=== PATIENT | female | born 1990 | race African-American/Black ===

== ENCOUNTER 2019-04-02 11:53 | Observation (INO) | payer OTHER, SELFPAY ==
[2019-04-02] MEDS ORDERED: Calcium Carbonate 500 MG ChewTAB PO PRN (14:13)
[2019-04-02] MEDS ORDERED: Ondansetron ODT 4 MG TAB PO PRN (14:13)
[2019-04-02] MEDS ORDERED: Ondansetron PF 4 MG/2 ML Vial IVP PRN (14:13)
[2019-04-02] MEDS ORDERED: Acetaminophen 650 MG Suppository PR PRN (14:13)
[2019-04-02] MEDS ORDERED: Morphine 2 MG/ML SYRINGE SLOW IVP PRN (14:16)
[2019-04-02] MEDS ORDERED: Pantoprazole 40 MG VIAL IVP SCH (14:30)
--- NOTE | 2019-04-02 14:34 | HP ---
PRIMARY CARE: [facility]. CHIEF COMPLAINT: Abdominal discomfort. HISTORY OF PRESENT ILLNESS: The patient is a 28-year-old female, with recent small-bowel obstruction requiring hospitalization at [facility], presented to the emergency room with above complaints. The patient was discharged four days ago from [facility]. Around 1 a.m., the patient had sudden onset of abdominal discomfort which was periumbilical cramping, moderate to severe in intensity associated with nausea and vomiting. The pain was radiating to her back on the right side. She had a total of six episodes of vomiting. The vomitus contained food, which she had eaten. Later on, it became bilious. The last bowel movement was approximately 3 hours ago. This was just prior to the admission to this facility from [place]. She felt generally weak and fatigued. No dysuria, hematuria, urgency, chest pain, palpitations, or lightheadedness reported. Approximately five days ago, she was diagnosed with small bowel obstruction and was evaluated by General surgeon, Dr. Argelia Quintero. She was advised to follow up with the above surgeon as outpatient for possible surgical intervention. She is unable to provide further details. PAST MEDICAL HISTORY: 1. Umbilical hernia. 2. Recent hospitalization as discussed above. PAST SURGICAL HISTORY: EGD in 2009. CURRENT HOME MEDICATION: The patient is on Tylenol No. 3 as needed. ALLERGIES: NO KNOWN DRUG ALLERGIES. SOCIAL HISTORY: The patient currently lives at home with her family. She has six children. No smoking, alcohol, or drug use. FAMILY HISTORY: Positive for diabetes. REVIEW OF SYSTEMS: All other review of systems was reviewed and were found negative. PHYSICAL EXAMINATION: VITAL SIGNS: Temperature 98, pulse rate of 94, blood pressure 121/89 with O2 saturation of 100% on room air. GENERAL: A 28-year-old female, in no significant distress. Abdominal pain improved with morphine and Reglan. HEENT: Head, atraumatic and normocephalic. Sclerae are anicteric. Moist mucous membranes. No oral lesion. NECK: Supple. No JVD. No carotid bruit. LUNGS: Lungs were clear to auscultation bilaterally. No wheezing, rales, or rhonchi. HEART: S1 and S2 present. Regular rate and rhythm. No rubs or gallops. ABDOMEN: Soft, nontender. Bowel sounds present. Umbilical hernia noted. No rebound or guarding. No costovertebral angle tenderness. EXTREMITIES: No edema or calf tenderness. NEUROLOGIC: Grossly nonfocal. Moves all 4 extremities. PSYCHIATRY: Alert, awake, and oriented x3. SKIN: Warm and dry. LYMPH NODES: No palpable lymph nodes in the neck. PERIPHERAL VASCULAR: Radial pulses palpable bilaterally. MUSCULOSKELETAL: No joint swelling and tenderness. DIAGNOSTIC IMPRESSION: 1. Telemetry rhythm by my review showed sinus rhythm. 2. CT scan of the abdomen and pelvis from [facility] showed slight improvement of the small bowel distention. There is some questionable internal hernia suspected. There was also fluid within the fat containing periumbilical hernia. 3. test was negative. 4. PT/INR; PTT was 12.2, INR 1.1. 5. Chemistry showed sodium 136, potassium 2.9, chloride 103, bicarb 24, BUN 6, creatinine 0.8, glucose of 113. 6. CBC showed WBC 8.2 with hemoglobin 13.1, hematocrit 40.4, platelet count of 251. IMPRESSION: 1. Abdominal pain of unclear etiology. CT scan showed suspected internal hernia. 2. Recent hospitalization at [facility] for small-bowel obstruction. 3. Nausea and vomiting with abdominal pain secondary to #1. 4. Hypokalemia. 5. Umbilical hernia. PLAN: The patient will be monitored on the surgical floor as 23-hour observation. General Surgery will be consulted. We will replace electrolytes. We will keep her n.p.o. except for ice chips. She received 1 dose of Zosyn in the emergency room. We will hold antibiotics for now. Pain control with IV morphine. Consult walking program. Recheck labs including lactic acid. Check urinalysis. The patient understands the above plan of care. Job ID: [id number]
[2019-04-02 15:19] LABS: Lactic Acid 0.7 mmol/L (0.5-2.2)
[2019-04-02 15:23] LABS: Magnesium 1.7 mg/dL (1.6-2.6)
[2019-04-02] MEDS: NS 0.9% w/ 40 MEQ KCL 1,000 ML IV SCH (17:04)
[2019-04-02 18:00] VITALS: BMI 41.5
[2019-04-02 19:11] LABS: Bilirubin Negative (Negative); Blood, Urine 1+ (Negative); Clarity Clear (Clear); Glucose, Urine (Dipstick) Normal (Negative); Leukocyte Negative Leu/uL (Negative); Nitrite Negative (Negative); Protein, Urine (Dipstick) 10 mg/dL (Neg-Trace); RBC/HPF 0-3 HPF (0-3); Urobilinogen Normal mg/dL (Less than 2)
[2019-04-02 19:12] LABS: Bacteria/HPF 1+ HPF (None Seen)
--- NOTE | 2019-04-02 20:16 | CON ---
DATE OF CONSULTATION: 04/02/2019 REQUESTING PHYSICIAN: Dr. Melgoza. CHIEF COMPLAINT: Abdominal discomfort. HISTORY OF PRESENT ILLNESS: This is a 28-year-old female who was admitted this past Friday at [facility] for an umbilical hernia with small bowel obstruction. The patient was discharged the next day and was told that they did not have time to do a surgical repair at that time. The patient was told to follow up with the surgeon in 2 weeks to schedule the surgery. The patient reports increased abdominal pain today with multiple episodes of vomiting. The patient was seen again at [facility] and was transferred as they did not have a surgeon on-call. The patient reports she had a sudden onset of abdominal discomfort. States that it was a cramping-like sensation around her umbilicus. The patient also reported multiple episodes of nausea and vomiting. States that first she vomited up food and then it was yellow afterwards. The patient did have a bowel movement earlier today. The patient states it was looser than normal. The patient also feels like she currently needs to have another bowel movement. The patient has not had any additional vomiting since being transferred. The patient states that the medication Reglan that they gave her at [facility] helped her pain and her vomiting. The patient also reported feeling generally weak and fatigued. The patient denies any urinary symptoms, denies any urgency, denies hematuria, denies any frequency. The patient denies any chest pain, shortness of breath, palpitations, or feeling lightheaded. The patient's last was 4 months ago and this is when she noticed her umbilical hernia. The patient was also given morphine with pain relief. PAST MEDICAL HISTORY: The patient denies. The patient is a 6, para 6, all vaginal deliveries. SURGICAL HISTORY: Reports endoscopy for reflux in 2009. ALLERGIES: NO KNOWN DRUG ALLERGIES. HOME MEDICATIONS: Tylenol No. 3 p.r.n. SOCIAL HISTORY: The patient is single, denies any alcohol use, denies any drug use or marijuana use, denies tobacco use. FAMILY HISTORY: Positive for diabetes. REVIEW OF SYSTEMS: A 10-point review of systems is negative unless otherwise indicated in the above HPI. PHYSICAL EXAMINATION: VITAL SIGNS: Blood pressure 120/73, SpO2 of 100% on room air, respirations 18, pulse 71, temperature 98.6. GENERAL: Well-appearing female, lying on her right side, in no acute distress. HEENT: Head is atraumatic and normocephalic. Mucous membranes are moist. Oropharynx is normal. NECK: Normal range of motion. No JVD. RESPIRATORY: Equal chest rise and fall. Bilateral breath sounds clear with no wheezing, rales, or rhonchi. CARDIAC: Regular rate and regular rhythm. No murmurs. ABDOMEN: Soft, nontender, nondistended. Bowel sounds present. No rebound tenderness or guarding. Umbilical hernia noted. EXTREMITIES: Moves all extremities. Distal pulses intact in all extremities. No pedal edema. NEUROLOGIC: No focal deficits. LABORATORY DATA: Lactic acid 0.7, magnesium 1.7. C-reactive protein 0.50, lipase 17. WBC 8.2, hemoglobin 13.1, hematocrit 40.4, platelets 251. IMPRESSION: 1. Abdominal pain and vomiting. 2. Recent hospitalization for small bowel obstruction. 3. Umbilical hernia. 4. Hypokalemia. PLAN: Recommend n.p.o. status until no emesis for 24 hours. Maintenance IV fluids. Surgery will re-evaluate the patient in the morning. The plan was discussed with Dr. Carrizales. Job ID: [id number]
[2019-04-02] MEDS ORDERED: Famotidine 20 MG TAB PO SCH (21:00)
[2019-04-03] MEDS: NS 0.9% w/ 40 MEQ KCL 1,000 ML IV SCH ×4 (00:16→22:54)
--- NOTE | 2019-04-03 01:28 | PRG ---
DATE OF SERVICE: 04/02/2019 SUBJECTIVE: The patient was seen this evening during rounds. She was resting comfortably and asleep with no signs of acute distress. Nursing reported no acute events. OBJECTIVE: VITAL SIGNS: Temperature 98.7, pulse 79, respirations 16, oxygen saturation 99% on room air, blood pressure 111/75. GENERAL: Well-appearing young female, lying in bed, asleep with no signs of acute distress. PULMONARY: Equal chest rise and fall. No signs of acute respiratory distress. ASSESSMENT: 1. Abdominal pain with nausea and vomiting. 2. Umbilical hernia, reducible. PLAN: Continue current n.p.o. and IV fluids. Continue p.r.n. pain medications. The patient should be ambulating as much as possible. Continue to watch for bowel function. We will check labs in the morning. Job ID: [id number]
[2019-04-03 05:27] LABS: #Eosinphils 0.1 thou/uL (0.0-0.7); #Lymphocytes 1.5 thou/uL (1.20-3.40); #Monocytes 0.4 thou/uL (0.11-0.59); #Neutrophils 3.2 thou/uL (1.40-6.50); %Eosinophils 2.5 % (0.0-10.0); %Lymphocytes 28.1 % (21.0-51.0); %Monocytes 8.4 % (0.0-10.0); %Neutrophils 61.1 % (42.0-75.0); Hemoglobin 10.7 g/dL (12.0-16.0); Mean Corpuscular HGB CONC 33.3 g/dL (32.0-36.0); Mean Corpuscular Hemoglobin 29.2 pg (27.0-31.0); Mean Corpuscular Volume 87.9 fL (78.0-98.0); Mean Platelet Volume 8.8 fL (7.4-10.4); Platelet Count 211 thou/uL (130-400); RBC Distribution Width 12.1 % (11.5-14.5); Red Blood Cell (RBC) Count 3.67 mill/uL (4.20-5.40); White Blood Cell (WBC) Count 5.2 thou/uL (4.8-10.8)
[2019-04-03 05:49] LABS: Phosphorus 3.4 mg/dL (2.3-4.7)
[2019-04-03 06:06] LABS: ALT (SGPT) 13 U/L (8-55); AST (SGOT) 14 U/L (5-34); Albumin 3.3 g/dL (3.5-5.0); Alkaline Phosphatase 64 U/L (40-110); Anion Gap 10 mmol/L (10-20); BUN (Urea Nitrogen) 6 mg/dL (7.0-18.7); Bilirubin, Total 0.7 mg/dL (0.2-1.2); Calc. Creatinine Clearance 186 mL/min (70-130); Calcium 8.4 mg/dL (7.8-10.44); Carbon Dioxide 26 mmol/L (22-29); Chloride 109 mmol/L (98-107); Estimated GFR-MDRD Greater than 90; Globulin 3.1 g/dL (2.4-3.5); Glucose 84 mg/dL (70-105); Magnesium 1.8 mg/dL (1.6-2.6); Potassium 4.1 mmol/L (3.5-5.1); Protein, Total 6.4 g/dL (6.0-8.3); Sodium 141 mmol/L (136-145)
[2019-04-03] MEDS: Pantoprazole 40 MG VIAL IVP SCH (08:57)
[2019-04-03] MEDS: Acetaminophen 325 MG TAB PO PRN (09:05)
[2019-04-03] MEDS ORDERED: diphenhydrAMINE 50 MG/ML VIAL ONE (09:42)
[2019-04-03] MEDS ORDERED: Ondansetron PF 4 MG/2 ML Vial ONE (09:42)
[2019-04-03] MEDS ORDERED: PROPOFOL 200 MG/20 ML VIAL ONE (09:42)
[2019-04-03] MEDS ORDERED: PHENYLEPHRINE-NS 100 MCG/ML 10 ML SYRINGE ONE (09:42)
[2019-04-03] MEDS ORDERED: Dexamethasone 20 MG/5 ML VIAL ONE (09:42)
[2019-04-03] MEDS ORDERED: EPHEDRINE 25 MG/5 ML SYRINGE ONE (09:42)
[2019-04-03] MEDS ORDERED: Ketorolac Tromethamine 30 MG/ML VIAL ONE (09:42)
--- NOTE | 2019-04-03 10:38 | PDOC.HOSPP ---
- Subjective Encounter Date: 04/03/19 Encounter Time: 10:36 Subjective: passing gas/some liquid stool pr - Objective Vital Signs & Weight: Vital Signs (12 hours) Temp Pulse Resp BP Pulse Ox 04/03/19 07:58 98.7 F 63 16 129/84 98 04/03/19 04:00 98.7 F 70 16 133/78 99 04/03/19 00:00 98.7 F 79 16 111/75 99 Weight Weight 250 lb I&O: 04/02/19 04/03/19 04/04/19 06:59 06:59 06:59 Intake Total 1800 Balance 1800 Result Diagrams: 04/03/19 04:37 04/03/19 04:37 Hospitalist ROS - Medication Medications: Active Medications Generic Name Dose Route Start Last Admin Trade Name Freq PRN Reason Stop Dose Admin Acetaminophen 650 mg 04/02/19 14:13 04/03/19 09:05 Tylenol PO 650 mg Q4H PRN Administration Headache/Fever/Mild Pain (1-3) Potassium Chloride/Sodium Chloride 1,000 mls @ 150 mls/hr 04/02/19 14:15 08:57 Ns 0.9% W/ 40 Meq Kcl IV 1,000 mls .[id number] WENDY Administration Pantoprazole Sodium 40 mg 04/03/19 09:00 04/03/19 08:57 Protonix IVP 40 mg DAILY WENDY Administration - Exam General Appearance: awake alert Neck: no JVD Heart: RRR, no murmur Respiratory: CTAB, no wheezes Gastrointestinal: soft, non-tender, normal bowel sounds Extremities: no edema Hosp A/P (1) Nausea & vomiting Code(s): R11.2 - NAUSEA WITH VOMITING, UNSPECIFIED Status: Acute (2) Umbilical hernia Code(s): K42.9 - UMBILICAL HERNIA WITHOUT OBSTRUCTION OR GANGRENE Status: Acute (3) SBO (small bowel obstruction) Code(s): K56.609 - UNSP INTESTNL OBST, UNSP TO PARTIAL VERSUS COMPLETE OBST Status: Acute - Plan cont npo cont MS for pain await surgery decision
[2019-04-03] MEDS ORDERED: Lidocaine 1% w/Epinephrine 1:100K 20 ML VIAL ONE (13:40)
[2019-04-03] MEDS ORDERED: Bupivacaine PF 0.5% 30 ML VIAL ONE (13:40)
[2019-04-03] MEDS ORDERED: Fentanyl 100 MCG/2 ML VIAL ONE ×4 (14:10→18:02)
[2019-04-03] MEDS ORDERED: Midazolam HCl 2 mg/2 ml Vial ONE ×2 (14:10→14:14)
[2019-04-03] MEDS ORDERED: HYDROmorphone 0.5 MG/0.5 ML SYRINGE ONE (15:30)
[2019-04-03] MEDS ORDERED: Promethazine HCl 25 MG/ML VIAL ONE (17:09)
[2019-04-03] MEDS ORDERED: Promethazine HCl 25 MG/ML VIAL IM/IV PRN (17:28)
[2019-04-03] MEDS ORDERED: Non-Formulary Medication 1 EACH PO PRN (17:28)
[2019-04-03] MEDS ORDERED: Ondansetron HCl/PF 4 MG/2 ML Vial IVP PRN (17:28)
--- NOTE | 2019-04-03 19:11 | OP ---
DATE OF PROCEDURE: 04/03/2019 PREOPERATIVE DIAGNOSIS: Acute incarcerated umbilical hernia. POSTOPERATIVE DIAGNOSIS: Acute incarcerated umbilical hernia. PROCEDURE PERFORMED: Repair of incarcerated umbilical hernia with 11.4 x 11.[address] hernia patch. ANESTHESIA: General endotracheal. ESTIMATED BLOOD LOSS: 20 mL. FLUIDS GIVEN: 1200 mL of crystalloids. COUNTS: Sponge and instrument counts were verified as correct x2. COMPLICATIONS: None apparent at the time of operation. INDICATIONS FOR OPERATION: A 28-year-old morbidly obese woman, G6, P6, presented with abdominal pain and nonreducible bulging mass. Clinical radiographic examination was consistent with acute incarcerated umbilical hernia, for which the patient was brought to the operating room for repair. Findings are consistent with large umbilical hernia with no strangulation. DESCRIPTION OF PROCEDURE: Informed consent was obtained from the patient, brought to the operating room and placed in supine position. Following general anesthesia, abdomen was sterilely prepped and draped in usual fashion. A curvilinear infraumbilical incision was made using 15 scalpel. Incision was carried through subcutaneous tissues. Large hernia sac was encountered, dissected down to the ugashik fascia. The fascia was defective in fashion. Once the loculated hernia sac was dissected free from viable fascia, the hernia sac was then dissected off the umbilicus. Hernia sac was opened, and contents were reduced into the peritoneal cavity. The hernia sac was amputated and passed off for transmission to Pathology. No bleeding was noted. Preperitoneal fat was freed from fascia. Bard 11.4 x 11.[address] hernia patch mesh was then brought into the operative field. This was sutured to ugashik fascia circumferentially using interrupted sutures of 0 Prolene with 2 cm overlap. Once the mesh was sutured into place, fascia itself was approximated using interrupted sutures of 0 Prolene. Subcutaneous tissue was irrigated clear with saline, noting good hemostasis in place. Umbilicus was reattached to ugashik fascia. Wound bed was infiltrated with 0.25% Marcaine with epinephrine. Deep tissues were approximated using interrupted sutures of 3-0 Vicryl. Skin incision was closed using a running stitch of 3-0 Monocryl suture in subcuticular fashion. Dermabond was applied over incisional closure. Pressure dressing was placed in the umbilicus. Abdominal binder was also applied. The patient tolerated the operation without any apparent complication and was returned to recovery room in satisfactory condition. Job ID: [id number]
[2019-04-03] MEDS ORDERED: FLU VACC QS2019-20(6MOS UP)/PF 60 MCG/0.5 ML SYRINGE IM ONE (21:00)
[2019-04-03] MEDS: traMADol HCl 50 MG TAB PO PRN (21:53)
[2019-04-04] MEDS: Morphine 2 MG/ML SYRINGE SLOW IVP PRN ×2 (00:59→06:57)
[2019-04-04] MEDS: Acetaminophen 325 MG TAB PO PRN (01:00)
--- NOTE | 2019-04-04 02:30 | PRG ---
DATE OF SERVICE: 04/03/2019 SUBJECTIVE: The patient was seen this evening during rounds. She was postop day 0 after repair of ventral hernia. At the time of my evaluation, the patient had just finished eating a regular diet, which she reported she tolerated. States her pain is well controlled. OBJECTIVE: VITAL SIGNS: Temperature 98.5, pulse 77, respirations 16, oxygen saturation 99% on room air, blood pressure 118/67. GENERAL: Well-appearing young female, sitting up in bed with no signs of acute distress. PULMONARY: Equal chest rise and fall. Clear breath sounds bilaterally. No signs of acute respiratory distress. ABDOMEN: Soft, appropriately tender to palpation and nondistended. ASSESSMENT: Umbilical hernia, now postop day 0, status post ventral hernia repair. PLAN: Continue current diet. We will discontinue IV fluids as patient is tolerating regular diet now. Continue current pain regimen. The patient will likely be discharged home tomorrow and will follow up in clinic and an appointment has already been placed in her chart. Job ID: [id number]
[2019-04-04] MEDS: NS 0.9% w/ 40 MEQ KCL 1,000 ML IV SCH (02:38)
[2019-04-04] MEDS: traMADol HCl 50 MG TAB PO PRN ×2 (04:05→11:35)
--- NOTE | 2019-04-04 07:35 | DIS ---
DATE OF ADMISSION: 04/02/2019 DATE OF DISCHARGE: 04/04/2019 PRIMARY CARE PROVIDER: Out of town. DISPOSITION: Discharged home. FINAL DIAGNOSES: Nausea, vomiting, umbilical hernia, intermittent small bowel obstruction. DISCHARGE MEDICATIONS: Tramadol 50 mg one or two p.o. q.6 hours p.r.n. pain. DIET: As tolerated. CODE STATUS: Full. PENDING AT TIME OF DISCHARGE: Nothing. CONSULTATION: Dr. Modesto Carrizales, general Surgery. PROCEDURES: 04/03/2019, repair of incarcerated umbilical hernia, Dr. Carrizales. HOSPITAL COURSE: The patient transferred from emergency room in the hospital to [facility] due to lack of surgical support in [place]. The patient with diagnosis of umbilical hernia with intermittent obstruction, abdominal cramping. Laboratory done here was unremarkable, CBC, metabolic profile. The patient was taken to the operating room with repair. The patient is tolerating meals post this morning. Vital signs are stable. She is asymptomatic. Abdomen is benign. She has been cleared for discharge by General Surgery. She is being discharged home. Follow up has been arranged with General Surgery. She has been requested to follow up with her PCP in 3 days. Job ID: [id number]
[2019-04-04] MEDS: Pantoprazole 40 MG VIAL IVP SCH (08:15)
[2019-04-04] MEDS ORDERED: Acetaminophen 325 MG TAB PO PRN (09:08)
[2019-04-04 12:15] VITALS: BP 114/75; TEMP 99.4
[2019-04-04] MEDS ORDERED: Ibuprofen 800 MG TAB PO PRN (14:00)
== END 2019-04-04 13:45 | disposition home or self-care (01) ==
LOC: ERS 11:53 → SURG A 16:12
PROVIDERS: ADMIT Emergency Medicine; ATTEND Emergency Medicine
PROC: 0WUF0JZ Supplement Abdominal Wall with Synthetic Substitute, Open Approach (ICD-10-PCS; principal; 2019-04-04)
DX: K42.0 Umbilical hernia with obstruction, without gangrene (principal); E87.6 Hypokalemia; E66.01 Morbid (severe) obesity due to excess calories; Z68.41 Body mass index [BMI] 40.0-44.9, adult
CPT/HCPCS: 36415; 80053; 81001; 83605; 83690; 83735; 84100; 85025; 86140; 88302; 96361; 96374; 96376; 99285; C9113; G0378; J0690; J1100; J1170; J1200; J1885; J2250; J2270; J2405; J2550; J2704; J3010; J3480; S0020